=== PATIENT | male | born 2000 | race Hispanic/Latino ===

== ENCOUNTER 2023-06-10 09:42 | Emergency (ER) | payer SELFPAY ==
[2023-06-10] MEDS ORDERED: Ketorolac Tromethamine 30 MG/ML VIAL ONE (10:02)
== END 2023-06-10 10:55 | disposition home or self-care (01) ==
LOC: ERS 09:42
DX: M25.562 Pain in left knee (principal); M25.462 Effusion, left knee; W10.1XXA Fall (on)(from) sidewalk curb, initial encounter
CPT/HCPCS: 96372; J1885